=== PATIENT | female | born 2000 | race Caucasian/White ===

== ENCOUNTER 2022-11-15 08:35 | Emergency (ER) | payer OTHER, SELFPAY ==
[2022-11-15 08:47] VITALS: BP 141/85; PULSE 82; RESP 18; TEMP 36.8; O2SAT 100; BMI 21.7
--- NOTE | 2022-11-15 09:01 | ED_ITS ---
HPI - Nausea/Vomiting/Diarrhea General Chief complaint: Nausea/Vomiting/Diarrhea Stated complaint: VOMITING Time Seen by Provider: 11/15/22 09:00 Source: patient Mode of arrival: Family Vehicle Limitations: no limitations History of Present Illness HPI Narrative: This is a 22-year-old female on escitalopram for depression daily with history of cyclic vomiting per patient. Patient states she had sudden onset nausea vomiting abdominal pain overnight she is had 2 or 3 days of watery diarrhea that she states is a little mucousy. She describes sort of generalized abdominal discomfort. No back or flank pain. Patient states no fevers or chills she is aware. Denies any chest pain or shortness of breath. She states she is had persistent nausea vomiting. She is able to stop in discussed with myself in between. Emesis is very small amount of frothy there is little to no emesis in the bag. Patient states she felt like it has been a little bit harder to urinate lately she denies any frequency, urgency, dysuria or incontinence. Denies any black or bloody stools notes 2 or 3 episodes of the diarrhea like stools last couple days. Patient states no vaginal bleeding or discharge. She states she is had similar episodes in the past and had multiple ER visits for them in the past. She states she normally responds to Zofran and morphine. Patient states her only current prescription is citalopram, she states no prior surgeries. No known drug allergies. Patient states former smoker, infrequent alcohol, was using marijuana daily until 2 weeks ago. Denies any other illicit substances. Patient has not been seen here before. Related Data Home Medications Medication Instructions Recorded Confirmed levonorgestrel 14 mcg/24 hrs (3 intrauterine 03/24/19 03/24/19 yrs) 13.5 mg intrauterine device ([place]) Previous Rx's Medication Instructions Recorded ondansetron 4 mg disintegrating 4 mg PO TID GI pains #60 tabs 03/24/19 tablet trazodone 100 mg tablet 100 mg PO HS Insomnia #30 tabs 03/24/19 risperidone 2 mg tablet 2 mg PO BEDTIME Moodiness #30 tabs 09/13/19 escitalopram oxalate 20 mg tablet 30 mg PO DAILY Depression and 10/10/19 anxiety #45 tabs ondansetron 4 mg disintegrating 4 mg PO Q6H PRN nausea and 11/15/22 tablet vomiting #5 tabs Allergies Allergy/AdvReac Type Severity Reaction Status Date / Time No Known Drug Allergies Allergy Verified 11/15/22 08:52 Review of Systems Review of Systems ROS Unobtainable: All systems reviewed & are unremarkable except as noted in HPI and below Patient History Social History Smoking Status: Former smoker Smoking Status: Former smoker tobacco type: cigarettes alcohol intake frequency: a few times a month Substance Use Type: marijuana Exam Narrative Exam Narrative: GENERAL: Alert and oriented x three, female in moderate distress HEENT: Head normocephalic, atraumatic, EOMI, pupils reactive, face symmetric, moist mucous membranes NECK: Supple, full range of motion CARDIOVASCULAR: Regular rate and rhythm without murmurs, rubs or gallops. RESPIRATORY: Breath sounds equal bilaterally, no wheezes rales or rhonchi. ABDOMEN: Soft, nontender. Non-distended. Normoactive bowel sounds all 4 quadrants. No guarding or rebound, rigidity, no mass. Patient is dry heaving in the room but no emesis in the bag. Has a small amount of frothy anus at the mouth. Patient is able to stop in converse with me in between. : No CVA tenderness EXTREMITIES: Normal range of motion, no clubbing or edema. Neurovascularly intact. NEUROLOGICAL: Cranial nerves II through XII grossly intact. Moving all extremities. Normal range of motion. SKIN: Warm, dry, no petechiae, no rashes or lesions. Initial Vital Signs Initial Vital Signs: Vital Signs Temperature 98.2 F 11/15/22 08:47 Pulse Rate 82 11/15/22 08:47 Respiratory Rate 18 11/15/22 08:47 Blood Pressure 141/85 H 11/15/22 08:47 Pulse Oximetry 100 11/15/22 08:47 Oxygen Delivery Method Room Air 11/15/22 08:47 Course Orders Ordered: ED Orders 11/15/22 09:23 XR abdomen min 2V Stat 11/15/22 13:18 Urine Culture Stat Urine Microscopic Stat Discontinued Medications Diphenhydramine HCl (Diphenhydramine 50 Mg/Ml Vial) 25 mg IV NOW ONE Stop: 11/15/22 09:25 Last Admin: 11/15/22 09:34 Dose: 25 mg Documented By: AMV Haloperidol (Haloperidol 5 Mg/Ml Vial) 2 mg IV NOW ONE Stop: 11/15/22 09:25 Last Admin: 11/15/22 09:34 Dose: 2 mg Documented By: AMV Sodium Chloride (Normal Saline 0.9%) 1,000 mls @ 1,000 mls/hr IV BOLUS ONE Stop: 11/15/22 10:04 Last Infusion: 11/15/22 10:15 Dose: 0 mls/hr Documented By: Admin: 11/15/22 09:07 Dose: 1,000 mls/hr Documented By: RLS Sodium Chloride (Normal Saline 0.9%) 1,000 mls @ 1,000 mls/hr IV BOLUS ONE Stop: 11/15/22 12:25 Last Infusion: 11/15/22 12:35 Dose: 0 mls/hr Documented By: Admin: 11/15/22 11:27 Dose: 1,000 mls/hr Documented By: AMV Ondansetron HCl (Ondansetron 4 Mg Odt) 4 mg PO NOW PRN PRN Reason: Nausea And Vomiting Ondansetron HCl (Ondansetron 4 Mg/2 Ml Inj) 4 mg IV NOW PRN PRN Reason: Nausea And Vomiting Last Admin: 11/15/22 09:11 Dose: 4 mg Documented By: VIRA Vital Signs Vital signs: Vital Signs - 8 hr 11/15/22 11:26 11/15/22 11:26 11/15/22 11:30 Pulse Rate 85 87 Respiratory Rate 16 Blood Pressure 109/60 114/61 Pulse Oximetry 99 98 Oxygen Delivery Method Room Air 11/15/22 11:30 11/15/22 12:00 11/15/22 14:15 Pulse Rate 88 102 H 96 H Respiratory Rate 16 Blood Pressure 130/72 Pulse Oximetry 99 100 97 Oxygen Delivery Method Room Air MDM - Nausea/Vomiting/Diarrhea Lab Data 11/15/22 09:07 11/15/22 09:07 Labs: Lab Results 11/15/22 11/15/22 11/15/22 Range/Units 09:00 09:07 09:07 WBC 9.4 (4.5-11.0) X10^3/uL RBC 4.45 (4.0-5.2) X10^6/uL Hgb 13.6 (12.0-16.0) g/dL Hct 40.6 (36-46) % MCV 91.2 (80-100) fL MCH 30.5 (26-34) PG MCHC 33.4 (30-36) % RDW 15.3 H (11.6-14.8) % Plt Count 303 (150-400) X10^3/uL Neut % (Auto) 73.3 (50-75) % Lymph % (Auto) 18.3 L (25-40) % Lyman % (Auto) 6.3 (3-14) % Eos % (Auto) 1.6 L (2-4) % Baso % (Auto) 0.5 (0-2) % Neut # (Auto) 6900 (6425-4240) /uL Lymph # (Auto) 1700 (9407-5869) /uL Lyman # (Auto) 600 (0-900) /uL Eos # (Auto) 100 (0-450) /uL Baso # (Auto) 100 (0-100) /uL Sodium 138 (137-145) mmol/L Potassium 3.9 (3.4-5.1) mmol/L Chloride 104 (98-107) mmol/L Carbon Dioxide 20 L (22-32) mmol/L BUN 8 (7-17) mg/dL Creatinine 0.39 L (0.52-1.04) mg/dL Estimated GFR > 60 (>60) mL/min BUN/Creatinine Ratio 20.5 (6-22) Glucose 131 H (70-100) mg/dL Calcium 8.9 (8.4-10.2) mg/dL Total Bilirubin 0.6 (0.2-1.3) mg/dL AST 24 (14-36) IU/L ALT 20 (<35) IU/L Alkaline Phosphatase 62 (38-126) U/L Total Protein 8.2 (6.3-8.2) g/dL Albumin 4.9 (3.5-5.0) g/dL Globulin 3.3 (1.7-4.1) g/dL Albumin/Globulin Ratio 1.5 (1.0-2.8) Lipase 80 (23-300) U/L Serum , Qual Negative (Negative) Urine RBC (0-5/HPF) Urine WBC (0-5/HPF) Ur Squamous Epith Cells (0-5/HPF) Urine Bacteria (None) Ur Culture Indicated? 11/15/22 Range/Units 13:18 WBC (4.5-11.0) X10^3/uL RBC (4.0-5.2) X10^6/uL Hgb (12.0-16.0) g/dL Hct (36-46) % MCV (80-100) fL MCH (26-34) PG MCHC (30-36) % RDW (11.6-14.8) % Plt Count (150-400) X10^3/uL Neut % (Auto) (50-75) % Lymph % (Auto) (25-40) % Lyman % (Auto) (3-14) % Eos % (Auto) (2-4) % Baso % (Auto) (0-2) % Neut # (Auto) (5430-2126) /uL Lymph # (Auto) (1604-2739) /uL Lyman # (Auto) (0-900) /uL Eos # (Auto) (0-450) /uL Baso # (Auto) (0-100) /uL Sodium (137-145) mmol/L Potassium (3.4-5.1) mmol/L Chloride (98-107) mmol/L Carbon Dioxide (22-32) mmol/L BUN (7-17) mg/dL Creatinine (0.52-1.04) mg/dL Estimated GFR (>60) mL/min BUN/Creatinine Ratio (6-22) Glucose (70-100) mg/dL Calcium (8.4-10.2) mg/dL Total Bilirubin (0.2-1.3) mg/dL AST (14-36) IU/L ALT (<35) IU/L Alkaline Phosphatase (38-126) U/L Total Protein (6.3-8.2) g/dL Albumin (3.5-5.0) g/dL Globulin (1.7-4.1) g/dL Albumin/Globulin Ratio (1.0-2.8) Lipase (23-300) U/L Serum , Qual (Negative) Urine RBC None seen (0-5/HPF) Urine WBC 0-1/hpf (0-5/HPF) Ur Squamous Epith Cells 5-10 /hpf H (0-5/HPF) Urine Bacteria Many (>30) H (None) Ur Culture Indicated? Specimen cultured Urine Dip Bedside Urine Glucose Negative Bedside Urine Bilirubin - Negative Bedside Urine Ketone - Negative Urine Specific [place] 1.005 Bedside Urine Occult Blood + Bedside Urine pH 8.0 Bedside Urine Protein - Negative Bedside Urine Urobilinogen - Negative Bedside Urine Nitrite - Negative Bedside Urine Leukocytes +/- 15 Esterase Imaging Data Abdominal x-ray: Radiologist's Impression: [address] [address] XRay Report Signed Patient: Jason Wood MR#: [id number] : 08/31/1961 Acct:[id number] Age/Sex: 61 / M Date of Service: 11/15/22 Loc: ED Accession Number: [id number] ?? Procedure: XR chest 1V Ordering Provider: Yara Durán D.O. PROCEDURE:? XR CHEST 1V ? INDICATIONS:? chest pain ? TECHNIQUE:? One view of the chest was acquired.? ? COMPARISON:? [facility], CR, XR CHEST 1V, 03/06/2022, 13:05. ? FINDINGS:? ? Surgical changes and devices:? None.? ? Lungs and pleura:? Lungs are clear.? No pleural effusions or pneumothorax.? ? Mediastinum:? Mediastinal contours appear normal.? Heart size is normal.? ? Bones and chest wall:? No suspicious bony lesions.? Overlying soft tissues appear unremarkable.? ? ? IMPRESSION:? No acute cardiopulmonary findings ? ? ? Approved by: Hema Barton M.D. on 11/15/2022 at 9:56? MDM Narrative Medical decision making narrative: This is a 22-year-old female who presents with complaint of vomiting, abdominal pain and diarrhea. Patient's labs including CBC, CMP and lipase shows CO2 of 20, normal electrolytes, renal function, BUN, glucose of 131 with LFTs normal and negative lipase, is negative. X-ray does not show obstructive pattern or free air. No some moderate fecal debris in the rectum without bowel obstruction. Patient received fluids and Zofran with minimal change received Benadryl and Haldol and feels much better. He is able to tolerate a little bit of oral challenge. Was not able to give urine samples was given additional L of fluids. Patient had bladder scan had 400 mL in her bladder but does not feel the need to urinate. Was able to give a urine, se is some bacteria but several squamous epithelials, no nitrates, +LE, and blood. No clear infection but was sent for infection. Patient is tolerating orals here in the department she is ambulated around several times and feels significantly improved. Patient plan for disposition home, Zofran as needed for nausea and return precautions. Discharge Plan Departure Patient Disposition: Home Clinical Impression: Cyclical vomiting Activity Restrictions/Additional Instructions: Please follow up for recheck. Your workup today does not show any major changes. You may take Zofran 1-2 tablets every 6 hours as needed for nausea or vomiting. Prescription printed. Please return for new or worsening symptoms, persistent vomiting, fevers, lightheadedness or passing out, black or bloody stools, difficulty with urinati on or other new or concerning changes. Prescriptions: New ondansetron 4 mg tablet,disintegrating 4 mg PO Q6H PRN (Reason: nausea and vomiting) Qty: 5 0RF No Action [place] 14 mcg/24 hrs (3 yrs) 13.5 mg intrauterine device intrauterine ondansetron 4 mg tablet,disintegrating 4 mg PO TID MDD 12 mg Qty: 60 2RF Rx Instructions: Take 1 tab up to 3 times a day for nausea/vomiting/abdominal pain See your primary care provider DIGNA trazodone 100 mg tablet 100 mg PO HS MDD 100mg Qty: 30 2RF risperidone 2 mg tablet 2 mg PO BEDTIME MDD 2mg Qty: 30 2RF escitalopram oxalate 20 mg tablet 30 mg PO DAILY MDD 30 mg Qty: 45 2RF Rx Instructions: Take 1.5 tabs daily for depression and anxiety Referrals: Claus Reyes MD [Primary Care Provider] - Stand Alone Forms: Patient Portal/API
[2022-11-15] MEDS: SODIUM CHLORIDE 0.9% 1,000 ML 1000 ML IV ×2 (09:07→11:27)
[2022-11-15] MEDS: ONDANSETRON 4 MG/2 ML INJ IV (09:11)
[2022-11-15 09:15] LABS: Add Manual Diff / Slide Review NO; Basophils Absolute Auto 100 /uL (0-100); Basophils Percent Auto 0.5 % (0-2); Eosinophils Absolute Auto 100 /uL (0-450); Eosinophils Percent Auto 1.6 % (2-4); Hematocrit 40.6 % (36-46); Hemoglobin 13.6 g/dL (12.0-16.0); Lymphocytes Absolute Auto 1700 /uL (1100-4500); Lymphocytes Percent Auto 18.3 % (25-40); Mean Corpuscular HGB Conc 33.4 % (30-36); Mean Corpuscular Hemoglobin 30.5 PG (26-34); Mean Corpuscular Volume 91.2 fL (80-100); Monocytes Absolute Auto 600 /uL (0-900); Monocytes Percent Auto 6.3 % (3-14); Neutrophils Absolute Auto 6900 /uL (1500-7000); Neutrophils Percent Auto 73.3 % (50-75); Platelet Count 303 X10^3/uL (150-400); Red Blood Cell Count 4.45 X10^6/uL (4.0-5.2); Red Cell Distribution Width 15.3 % (11.6-14.8); White Blood Cell Count 9.4 X10^3/uL (4.5-11.0)
--- NOTE | 2022-11-15 09:23 | DI.RAD.S_ITS ---
PROCEDURE: XR ABDOMEN MIN 2V INDICATIONS: vomiting, diarrhea, hx of cyclic vomiting TECHNIQUE: 2 views of the abdomen were acquired. COMPARISON: None. FINDINGS: Surgical changes and devices: None. Bowel: Moderate fecal debris in the rectum without bowel obstruction Soft tissues: No masses; visualized solid organ contours appear normal in size. No suspicious abdominal calcifications. Bones: No suspicious bony abnormalities. IMPRESSION: Moderate fecal debris in the rectum without bowel obstruction Approved by: Hema Barton M.D. on 11/15/2022 at 9:53
[2022-11-15 09:25] LABS: Alanine Aminotransferase 20 IU/L (<35); Albumin 4.9 g/dL (3.5-5.0); Albumin Globulin Ratio 1.5 (1.0-2.8); Alkaline Phosphatase 62 U/L (38-126); Aspartate Aminotransferase 24 IU/L (14-36); BUN Creatinine Ratio 20.5 (6-22); Bilirubin Total 0.6 mg/dL (0.2-1.3); Blood Urea Nitrogen 8 mg/dL (7-17); Calcium 8.9 mg/dL (8.4-10.2); Carbon Dioxide 20 mmol/L (22-32); Chloride 104 mmol/L (98-107); Estimated Glomerular Filt Rate > 60 mL/min (>60); Globulin 3.3 g/dL (1.7-4.1); Glucose 131 mg/dL (70-100); HEMOLYSIS < 15 (0-50); Lipase 80 U/L (23-300); Potassium 3.9 mmol/L (3.4-5.1); Sodium 138 mmol/L (137-145); Total Protein 8.2 g/dL (6.3-8.2)
[2022-11-15] MEDS: diphenhydrAMINE 50 MG/ML VIAL 25 MG IV (09:34)
[2022-11-15] MEDS: HALOPERIDOL 5 MG/ML VIAL 2 MG IV (09:34)
[2022-11-15 10:03] LABS: Pregnancy Test Serum,Qual Negative (Negative)
[2022-11-15 11:26] VITALS: BP 109/60; PULSE 85; PULSE 87; RESP 16; O2SAT 98; O2SAT 99
--- NOTE | 2022-11-15 11:28 | PC.NURSE ---
Pt attempted to urinate, unable to give a sample. Dr. Durán notified, ordered another L NS
[2022-11-15 11:30] VITALS: BP 114/61; PULSE 88; O2SAT 99
[2022-11-15 12:00] VITALS: PULSE 102; O2SAT 100
[2022-11-15 13:43] LABS: Bacteria Urine Many (>30); Culture Indicated Urine Specimen Cultured; RBC Urine None Seen (0-5/HPF); Squamous Epithelial Cell Urine 5-10 /HPF (0-5/HPF); WBC Urine 0-1/HPF (0-5/HPF)
[2022-11-15 14:15] VITALS: BP 130/72; PULSE 96; RESP 16; O2SAT 97
== END 2022-11-15 14:15 | disposition home or self-care (01) ==
PROVIDERS: Emergency Provider Emergency Medicine; PCP Family Medicine
DX: R11.15 Cyclical vomiting syndrome unrelated to migraine (principal); R07.9 Chest pain, unspecified
CPT/HCPCS: 36415; 51798; 74019; 80053; 81003; 81015; 83690; 84703; 85025; 87077; 87086; 87186; 96361; 96374; 96375; 99284; J1200; J1630; J2405